=== PATIENT | male | born 1955 | race Caucasian/White ===

== ENCOUNTER 2021-06-05 10:25 | Emergency (ER) | payer OTHER, SELFPAY ==
[~2021-06-05] VITALS: Ht 190.5 cm; Wt 95.3 kg
[2021-06-05 10:46] VITALS: BP_SYST 127
--- NOTE | 2021-06-05 11:00 | NUR ---
Patient to tent2 for evaluation.
--- NOTE | 2021-06-05 11:30 | NUR ---
Pt presents to ED c/o COVID symptoms
[2021-06-05] MEDS ORDERED: NACL 0.9% 1,000 ML IV ONE ×2 (11:45→12:30)
[2021-06-05] MEDS ORDERED: ONDANSETRON HCL 4 MG/2 ML VIAL IVP ONE (11:45)
--- NOTE | 2021-06-05 12:00 | NUR ---
ER at bedside examining patient.
[2021-06-05 12:12] LABS: BASOPHILS % (AUTO) 0.4 % (0.0-2.0); EOSINOPHILS % (AUTO) 0.1 % (0.0-4.0); HEMATOCRIT 45.8 % (36-54); HEMOGLOBIN 15.8 g/dL (14.0-18.0); LYMPHOCYTES # (AUTO) 1.1 K/uL (1.0-5.5); LYMPHOCYTES % (AUTO) 23.1 % (20.5-51.5); MEAN CORPUSCULAR HEMOGLOBIN 31 pg (27-31); MEAN CORPUSCULAR HGB CONC 35 % (32-36); MEAN CORPUSCULAR VOLUME 89 fL (79.0-98.0); MONOCYTES # (AUTO) 0.6 K/uL (0.0-1.0); MONOCYTES % (AUTO) 12.1 % (1.7-9.3); NEUTROPHILS # (AUTO) 3.2 K/uL (1.8-7.7); NEUTROPHILS % (AUTO) 64.3 % (40.0-70.0); PLATELET COUNT (AUTO) 175 K/uL (130-430); RED BLOOD CELL COUNT(AUTO) 5.15 MIL/uL (4.2-6.2); RED CELL DISTRIBUTION WIDTH 13.5 % (9.0-15.0); WHITE BLOOD COUNT (AUTO) 4.9 K/uL (4.8-10.8)
[2021-06-05 12:36] LABS: CALCIUM 8.3 mg/dL (8.4-11.0); CREATININE 1.02 mg/dL (0.55-1.30); POTASSIUM 3.7 mmol/L (3.5-5.1)
[2021-06-05 12:41] LABS: ALBUMIN 3.4 g/dL (3.4-4.8); TOTAL BILIRUBIN 0.8 mg/dL (0.0-1.0)
[2021-06-05 13:02] LABS: PROTHROMBIN TIME 10.1 SECS (9.5-12.5)
--- NOTE | 2021-06-05 13:31 | NUR ---
PT MEDICATED TOLERATED WELL.
[2021-06-05 13:35] LABS: CKMB RELATIVE INDEX 0.3 (0.0-2.9); CREATINE KINASE MB 2.7 ng/mL (0-3.6)
--- NOTE | 2021-06-05 14:00 | NUR ---
Patient given written and verbal discharge instructions and verbalizes understanding. ER MD discussed with patient the results and treatment provided. Patient in stable condition. ID arm band removed. IV catheter removed intact and dressing applied, no active bleeding. no Rx of given. Patient educated on pain management and to follow up with PMD. Pain Scale 0 Opportunity for questions provided and answered. Medication side effect fact sheet provided.
[2021-06-05] MEDS ORDERED: DEXAMETHASONE SOD PHOSPHATE 10 MG/ML VIAL IVP ONE (14:30)
[2021-06-05 15:00] VITALS: BP_SYST 127
== END 2021-06-05 15:00 | disposition home or self-care (01) ==
LOC: SED 11:51
DX: U07.1 COVID-19 (principal)
CPT/HCPCS: 36415; 71045; 80053; 82550; 82553; 83605; 84484; 85025; 85379; 85610; 85730; 87426; 93005; 96374; 96375; 99285; J1100; J2405; J7030